=== PATIENT | female | born 1950 | race Caucasian/White ===

== ENCOUNTER 2021-10-02 03:37 | Emergency (ER) | payer MEDICARE ==
[~2021-10-02 03:37] MED LIST: ALPHAGAN 020 DROPS/M OU; ASPIRIN EC81 MG PO; COLESTID1 GM PO; CRESTOR5 MG PO; NEURONTIN300 MG PO; PRILOSEC20 MG PO; TIMOPTIC5 M1 OU; ZESTORETIC 20-1 EACH PO
[2021-10-02 05:10] LABS: BASOPHIL 0.5 % (0-2); EOSINOPHIL 0.8 % (0-7); HGB 12.9 g/dl (12.5-16.0); LYMPHOCYTE 7.3 % (15-48); MCH 26.2 pg (25.0-31.0); MCHC 30.7 g/dL (32.0-36.0); MCV 85.2 fL (78.0-100.0); MONOCYTE 3.7 % (0-12); MPV 10.2 fL (6.0-9.5); NEUTROPHIL 87.1 % (41-80); NRBC 0; PLT 304 K/uL (150-400); RBC 4.93 M/uL (4.20-5.40); RDW 13.6 % (11.5-14.0); WBC 10.6 K/uL (4.0-10.5)
[2021-10-02 05:22] LABS: BUN/CREAT RATIO (CALC) 12.8 RATIO; CREATININE 0.86 mg/dL (0.51-0.95); POTASSIUM 3.4 mmol/L (3.5-5.1)
[2021-10-02] MEDS ORDERED: FLEXERIL5 MG PO ×2 (06:02→06:19)
[2021-10-02] MEDS ORDERED: PERCOCET 5-3251 EACH PO ×2 (06:02→06:19)
[2021-10-02] MEDS ORDERED: NAPROXEN500 MG PO ×2 (06:02→06:19)
[2021-10-02 06:17] LABS: BILIRUBIN NEGATIVE (NEGATIVE); BLOOD NEGATIVE Ery/uL (NEGATIVE); CLARITY CLEAR (CLEAR); COLOR YELLOW (YELLOW); GLUCOSE (U) NORMAL (NORMAL); LEUKOCYTES NEGATIVE Leu/uL (NEGATIVE); NITRITE NEGATIVE (NEGATIVE); PROTEIN NEGATIVE (NEGATIVE); SPECIFIC GRAVITY >=1.030 (1.001-1.030); UROBILINOGEN 0.2 mg/dL (0.2-1.0); pH 5.5 (5.0-9.0)
== END 2021-10-02 06:52 | disposition home or self-care (01) ==
LOC: FER 03:37
PROVIDERS: Internal Medicine
DX: K63.89 Other specified diseases of intestine (principal); M54.50 Low back pain, unspecified
CPT/HCPCS: 36415; 72131; 80048; 81003; 85025; 96372; J1170; J2405; J2930